=== PATIENT | female | born 1970 | race Caucasian/White ===

== ENCOUNTER 2016-07-29 20:15 | Emergency (ER) | payer MEDICAID ==
--- NOTE | ~2016-07-29 | ER ---
PATIENT'S NAME: ADOLPH SOMERS [facility] AGE: 45 Y [address] ROOM: [place] [address] LOCATION: [facility] ADMIT DATE: 07/29/2016 ER/Outpatient Report DISCHARGE DATE: 07/29/2016 FAMILY PHYSICIAN: Antonina Palmer ATTENDING PHYSICIAN: Flavio Jose Admission date and time are documented on the medical record. I saw the patient at 2025 hours. CHIEF COMPLAINT: Left anterior chest pain, radiating to her left upper arm, to her shoulder, down her left upper arm to the mid-biceps area. HISTORY OF PRESENT ILLNESS: This patient is a 45-year-old female who has had some left anterior chest pain radiating to her left shoulder down her left arm off and on for 3 weeks. She has some shortness of breath and cough. Cough is nonproductive. No fever, chills, sweats, or rigors. Upper respiratory cold. No headache, eyes, ears, nose, throat, neck, or spine pain. No lightheadedness, dizziness, syncope, or near syncope. No abdominal pain, nausea, vomiting, diarrhea, or urinary frequency, urgency, or dysuria. No joint or muscle swelling, redness, or pain. No skin eruptions or rash. Does have depression and anxiety. No neuro changes. No endocrine problems. HOME MEDICATIONS: See attached medication list. ALLERGIES: PENICILLIN. SOCIAL HISTORY: The patient smokes 1-1/2 to 1 pack of cigarettes per day. Rare intake of alcohol. SIGNIFICANT PAST MEDICAL HISTORY: Anxiety, depression, tobacco abuse, hypertension, dyslipidemia, and pseudotumor cerebri. OPERATIONS: D and C x2, x2, and cholecystectomy. REVIEW OF SYSTEMS: All systems reviewed by me are negative with the exception of those discussed in the history of present illness. PATIENT'S NAME: ADOLPH SOMERS [facility] AGE: 45 Y [address] ROOM: [place] [address] LOCATION: [facility] ADMIT DATE: 07/29/2016 ER/Outpatient Report DISCHARGE DATE: 07/29/2016 FAMILY PHYSICIAN: Antonina Palmer ATTENDING PHYSICIAN: Flavio Jose PHYSICAL EXAMINATION: VITAL SIGNS: Temperature 97.7, tympanic, pulse 81, respirations 16, blood pressure 132/64, and O2 sat on room air is 100%. [place] Coma Scale was 15. HEAD: Normocephalic. EYES: Clear. EARS: Clear TMs bilaterally. NOSE AND THROAT: Clear. Mucous membranes moist. Teeth, jaw intact. NECK: No nuchal rigidity. No thyromegaly or cervical adenopathy. No tenderness. SPINE: Negative. LUNGS: Clear. Good airflow. No rales, rhonchi, or wheezes. HEART: Regular. Pulses are palpable. Chest wall pain to palpation over the left anterior chest wall reproduces pain. ABDOMEN: Soft, nondistended, nontender. Good bowel tones. No organomegaly or abnormal mass palpable. EXTREMITIES: Without peripheral edema, cyanosis, or deformity. NEUROVASCULAR: Intact. SKIN: Clear. LABORATORY DATA: EKG showed sinus rhythm. No acute ST-elevation, ischemic change, or arrhythmia. IMPRESSION: Left anterior chest wall pain, costochondritis with possible pleurisy. PLAN: The patient dismissed home. Observation. Activity as tolerated. Continue present home medications and care. Fluids, diet as tolerated. Medrol Dosepak take as directed. Phenergan Expectorant with Codeine, cough medication as needed for cough, heating pad to sore area of the left anterior chest intermittently as needed. Follow up with personal physician as needed. Discussion ensued with the patient concerning my findings and recommendations, she understands. MD NADIA REESE/modl /[id number] d: 07/30/16 0115 t: 07/30/16 1812, OUTPATIENT REPORT
[~2016-07-29 20:15] MED LIST: ALEVE220 M1 PO; DITROPAN XL5 MG PO; PRINIVIL (ZESTR20 MG PO; TRAZODONE PO; ZOCOR20 MG PO
== END 2016-07-29 20:58 | disposition disaster alternative care site (69) ==
LOC: GMED 20:15
DX: M94.0 Chondrocostal junction syndrome [Tietze] (principal); F17.210 Nicotine dependence, cigarettes, uncomplicated; F32.9 Major depressive disorder, single episode, unspecified; F31.9 Bipolar disorder, unspecified; E78.5 Hyperlipidemia, unspecified; I10 Essential (primary) hypertension; Z88.0 Allergy status to penicillin; Z90.49 Acquired absence of other specified parts of digestive tract; Z98.890 Other specified postprocedural states

== ENCOUNTER 2016-07-31 20:09 | Emergency (ER) | payer MEDICAID ==
--- NOTE | ~2016-07-31 | ER ---
PATIENT'S NAME: ADOLPH SOMERS [facility] AGE: 45 Y [address] ROOM: [place] [address] LOCATION: ED ADMIT DATE: 07/31/2016 ER/Outpatient Report DISCHARGE DATE: 07/31/2016 FAMILY PHYSICIAN: Antonina Palmer ATTENDING PHYSICIAN: Flavio Jose CHIEF COMPLAINT: Right foot injury. TIME OF THE PATIENT ARRIVAL: 2008 hours. TIME OF THE PATIENT EVALUATION: 2109 hours. The patient was not seen in a timely manner due to busy ER. HISTORY OF PRESENT ILLNESS: This is a 45-year-old female who presents to the ER who states she dropped a jar on the top of her right foot around 7:30 this evening. The patient states that she is having pain across her entire foot. She was able to ambulate on it. She denies any other injury at this time. ALLERGIES: PENICILLIN. MEDICATIONS: Please see medication list nurse's notes. PAST MEDICAL HISTORY: Hypertension, anxiety, depression, she has had a , cholecystectomy, and tubal ligation. SOCIAL HISTORY: Denies any smoking, drug, or alcohol use. REVIEW OF SYSTEMS: CONSTITUTIONAL: Denies any change in weight or fatigue. MUSCULOSKELETAL: Complaining of right foot pain. HEME: No easy bruising or bleeding. SKIN: No lesions or rashes. PHYSICAL EXAMINATION: VITAL SIGNS: Height 5 feet stated, blood pressure is 128/71, weight 84 kg taken, pulse 74, respirations 16, temperature 98.7 degrees tympanically, and saturations 96% on room air. On[place] Coma Score is 15. GENERAL: Alert, calm, well-developed female, in no acute distress. PATIENT'S NAME: ADOLPH SOMERS [facility] AGE: 45 Y [address] ROOM: [place] [address] LOCATION: ED ADMIT DATE: 07/31/2016 ER/Outpatient Report DISCHARGE DATE: 07/31/2016 FAMILY PHYSICIAN: Antonina Palmer ATTENDING PHYSICIAN: Flavio Jose EXTREMITIES: No clubbing or cyanosis. She does have tenderness with palpation across distal aspect of all of her metatarsals. She has good capillary refill to all of her toes. She has a good pulse noted. She has no tenderness in her heel or tib-fib area. NEURO: Cranial nerves 2 through 12 grossly intact. Gait is steady without assistance. LABS AND X-RAYS: Labs none were done. X-rays of the right foot showed no obvious fracture. IMPRESSION: Right foot contusion. ASSESSMENT AND PLAN: I did give the patient reassurance. We did give her some ibuprofen here in the emergency room for her pain. We will dismiss her to home. She is to ice, elevate the foot, take Tylenol or ibuprofen as needed for pain control, and follow up with her primary care physician as needed. The patient understands and agrees with care. MILAD ANGUIANO PA-C FOR MD GEORGE REESE/modl /[id number] d: t: 08/08/16 1232, OUTPATIENT REPORT
== END 2016-07-31 22:45 | disposition disaster alternative care site (69) ==
LOC: GMED 20:09
DX: S90.31XA Contusion of right foot, initial encounter (principal); I10 Essential (primary) hypertension; F32.9 Major depressive disorder, single episode, unspecified; F41.9 Anxiety disorder, unspecified; Z90.49 Acquired absence of other specified parts of digestive tract; Z88.0 Allergy status to penicillin; Z98.51 Tubal ligation status; W20.8XXA Other cause of strike by thrown, projected or falling object, initial encounter

== ENCOUNTER 2016-08-08 19:15 | Emergency (ER) | payer MEDICAID ==
--- NOTE | ~2016-08-08 | ER ---
PATIENT'S NAME: ADOLPH SOMERS [facility] AGE: 45 Y [address] ROOM: [place] [id number] LOCATION: [facility] ADMIT DATE: 08/08/2016 ER/Outpatient Report DISCHARGE DATE: 08/08/2016 FAMILY PHYSICIAN: Antonina Palmer ATTENDING PHYSICIAN: Becka Lane Time of Arrival: 1815 hours. Time of Evaluation: 1935 hours. CHIEF COMPLAINT: Fever. HISTORY OF PRESENT ILLNESS: This is a 45-year-old female, who presents to the ER, who states she started running a fever on Friday. The patient states she has not been eating or drinking very well and feels like she may be dehydrated. The patient states that she has had vomiting, no diarrhea. She has had a little bit of a cough, but it has not been bad, and that is not new for her. She has not taken anything lately for her fever, but she did take some Aleve around 1600 hours today. The patient states that no one else at home is ill at this time. ALLERGIES: PENICILLIN. MEDICATIONS: Please see medication list nurse's notes. PAST MEDICAL HISTORY: Pseudotumor cerebri. PAST SURGERIES: x2, tubal ligation, and cholecystectomy. SOCIAL HISTORY: Smokes half pack a day. She does have a drug history. She smoked methamphetamines 20 years ago. REVIEW OF SYSTEMS: A 10-point review of systems was completed and was negative with the exception of those discussed in the HPI. PHYSICAL EXAMINATION: VITAL SIGNS: Height 5 feet and 1 inch stated, weight 82.4 kg taken, blood pressure is 106/59, pulse 114, respirations 18, temperature 101 degrees tympanically, and saturations 95% on room air. Oniel Coma Score is 15. PATIENT'S NAME: ADOLPH SOMERS [facility] AGE: 45 Y [address] ROOM: [place] [address] LOCATION: ED ADMIT DATE: 08/08/2016 ER/Outpatient Report DISCHARGE DATE: 08/08/2016 FAMILY PHYSICIAN: Antonina Palmer ATTENDING PHYSICIAN: Becka Lane GENERAL: Alert, calm, well developed female, in no acute distress, but she does appear that she does not feel well. HEENT: Head: Normocephalic. Eyes: Pupils are equal and reactive to light. Ears: TMs display good light reflexes bilaterally. Auditory canals are clear. Nose: Turbinates pink with no drainage. Throat: Slightly erythematic. No exudates were seen. She does have tacky mucous membranes. LUNGS: Clear to auscultation bilaterally. No wheezes or crackles. Normal respiratory effort. HEART: Tachycardic. Normal rhythm. No lifts, thrills, or murmurs. ABDOMEN: Soft. It is nontender. She has good bowel sounds throughout. No masses are palpated. EXTREMITIES: No clubbing, cyanosis, or edema. Full range of motion of all limbs. SKIN: Warm, dry, and intact. LABORATORY DATA: CBC: White count is 9.7, hemoglobin is 12.5, platelets are 171, and ANC is 7.5. CMS: Potassium is 3.4, sodium is 138, glucose is 124, calcium 8.4, BUN 28, and creatinine 1.5. Influenza A and B were both negative. Strep test was negative. IMPRESSION: Febrile illness. ASSESSMENT AND PLAN: We did give the patient a total of 2 L of IV fluids here in the emergency room along with Zofran 4 mg IV. We did give her 800 mg of ibuprofen for her fever as well. The patient states she is feeling much better prior to dismissal. We will dismiss her to home with a prescription for Zofran to use as directed. She needs to do small amounts of fluids frequently, continue to monitor her symptoms, Tylenol or ibuprofen as needed for fever, and follow up with her primary care physician if she worsens. The patient understands and agrees with care. MILAD ANGUIANO PA-C FOR MD GEORGE LEBLANC/wayne /[id number] d: 08/09/16 0157 t: 08/09/16 1818, OUTPATIENT REPORT
[2016-08-08 20:12] LABS: BASOPHIL % 0.2 %; EOSINOPHIL # 0.1 K/uL (0.0-0.5); EOSINOPHIL % 0.6 %; HEMATOCRIT 37.8 % (33.0-46.0); HEMOGLOBIN 12.5 g/dL (10.0-15.0); IMMATURE GRANULOCYTE # 0.1 K/uL (0.0-0.3); IMMATURE GRANULOCYTE % 0.5 %; LYMPHOCYTE # 1.2 K/uL (0.8-4.0); LYMPHOCYTE % 12.7 %; MCHC 33.1 gm/dL (32.0-36.5); MCV 90.9 fl (83.0-98.0); MONOCYTE # 0.8 K/uL (0.0-1.0); MONOCYTE % 8.1 %; MPV 10.1 fl (9.4-12.4); NEUTROPHIL # (ANC) 7.5 K/uL (1.8-7.8); NEUTROPHIL % 77.9 %; NRBC % 0 /100WBC (0-0.00); PLATELET COUNT 171 K/uL (150-450); RBC 4.16 M/uL (3.50-5.50); RDW-CV 14.5 % (11.9-14.6); WBC 9.7 K/uL (4.0-11.0)
[2016-08-08 20:28] LABS: ALBUMIN 2.8 gm/dL (3.5-5.0); ANION GAP 17.4 (10.0-19.0); CALCIUM 8.4 mg/dL (8.5-10.5); CREATININE 1.5 mg/dL (0.5-1.1); POTASSIUM 3.4 mMol/L (3.7-5.1); TOTAL BILIRUBIN 0.6 mg/dL (0.0-1.5); TOTAL PROTEIN 6.7 g/dL (6.0-8.4)
== END 2016-08-08 21:32 | disposition disaster alternative care site (69) ==
LOC: GMED 19:15
PROVIDERS: Emergency Medicine
DX: R50.9 Fever, unspecified (principal); F17.210 Nicotine dependence, cigarettes, uncomplicated; Z98.51 Tubal ligation status; Z90.49 Acquired absence of other specified parts of digestive tract; Z88.0 Allergy status to penicillin
CPT/HCPCS: J2405; J7030

== ENCOUNTER 2016-10-10 12:15 | Emergency (ER) | payer MEDICAID ==
--- NOTE | ~2016-10-10 | ER ---
PATIENT'S NAME: ADOLPH SOMERS [facility] AGE: 45 Y [address] ROOM: [place] [address] LOCATION: [facility] ADMIT DATE: 10/10/2016 ER/Outpatient Report DISCHARGE DATE: 10/10/2016 FAMILY PHYSICIAN: Antonina Palmer ATTENDING PHYSICIAN: Kita Marmolejo Time of arrival: 1230. Time of exam: 12:40. CHIEF COMPLAINT: Finger laceration. HISTORY OF PRESENT ILLNESS: The patient states approximately 30 minutes prior to arrival, she was using a knife to cut an onion and cut her left middle finger. Denies any other injury. ALLERGIES: ON THE CHART AND REVIEWED BY ME. MEDICATIONS: On the chart and reviewed by me. PAST MEDICAL HISTORY: Chronic kidney disease, hypertension, brain tumor, and elevated cholesterol. PAST SURGICAL HISTORY: x2. D and C, gallbladder. SOCIAL HISTORY: She smokes half pack per day. Denies use of drugs or alcohol. Tetanus shot was approximately 3 years ago. She presented to the ER tonight with her [id number]. REVIEW OF SYSTEMS: All negative other than those mentioned in the HPI. PHYSICAL EXAMINATION: VITAL SIGNS: She weighed 80 kg, blood pressure is 116/89, pulse of 91, respirations 20, temperature of 98, and O2 saturations 96% on room air. GENERAL: She is awake, alert, and oriented x4. SKIN: [place], warm, and dry. RESPIRATIONS: Even and nonlabored. LUNGS: Sounds are clear throughout. HEART: Regular rate and rhythm. PATIENT'S NAME: ADOLPH SOMERS [facility] AGE: 45 Y [address] ROOM: [place] [address] LOCATION: [facility] ADMIT DATE: 10/10/2016 ER/Outpatient Report DISCHARGE DATE: 10/10/2016 FAMILY PHYSICIAN: Antonina Palmer ATTENDING PHYSICIAN: Kita Marmolejo EXTREMITIES: The patient has a lacerated left middle finger on the pad of the finger on the palmar side. It is approximately 1.5 cm long and U-shaped. She has strong radial and ulnar pulses. Good sensation to the tip of her fingers. EMERGENCY ROOM COURSE: The finger was anesthetized with 1% plain Xylocaine. Cleansed well with saline and Betadine and then closed with 4-0 Ethilon x3 stitches. The patient tolerated the procedure well. Sensation to finger continues. IMPRESSION: Laceration with simple closure. PLAN: Home, rest. Keep the wound clean and dry. Follow up with the primary provider in 2 to 3 days if showing signs of infection, otherwise in 7 to 10 days to have the stitches removed. The patient verbalized understanding. KAREEM LOVING APRN FOR MD LUIS PHAN/wayne /[id number] d: 10/11/16 0027 t: 10/15/16 1310, OUTPATIENT REPORT
== END 2016-10-10 13:00 | disposition disaster alternative care site (69) ==
LOC: GACC 12:15
PROC: 0HQGXZZ Repair Left Hand Skin, External Approach (ICD-10-PCS; principal; 2016-10-10)
DX: S61.213A Laceration without foreign body of left middle finger without damage to nail, initial encounter (principal); F17.210 Nicotine dependence, cigarettes, uncomplicated; I12.9 Hypertensive chronic kidney disease with stage 1 through stage 4 chronic kidney disease, or unspecified chronic kidney disease; N18.9 Chronic kidney disease, unspecified; E78.00 Pure hypercholesterolemia, unspecified; Z98.890 Other specified postprocedural states; W26.0XXA Contact with knife, initial encounter; Y93.89 Activity, other specified

== ENCOUNTER 2016-12-03 14:39 | Emergency (ER) | payer MEDICAID ==
--- NOTE | ~2016-12-03 | ER ---
PATIENT'S NAME: ADOLPH SOMERS [facility] AGE: 46 Y [address] ROOM: [place], [place] [address] LOCATION: ED ADMIT DATE: 12/03/2016 ER/Outpatient Report DISCHARGE DATE: 12/03/2016 FAMILY PHYSICIAN: Antonina Palmer ATTENDING PHYSICIAN: Gerry Dawson TIME SEEN: 1445 hours. CHIEF COMPLAINT: Left-sided chest pain. HISTORY OF PRESENT ILLNESS: The patient 46-year-old female who presents with left-sided chest pain, started about two days ago. She denies any fevers, no shortness of breath. MEDICAL HISTORY: Includes hypertension, has a previous history of treatment for bronchitis. SURGERIES: Include , tubal ligation, and cholecystectomy. SOCIAL HISTORY: Smoker, half pack a day. Alcohol, occasionally. REVIEW OF SYSTEMS: GENERAL: No recent fever or chills. HEAD AND EENT: Denies any nasal congestion or sore throat. RESPIRATORY: Has had a slight cough. She does complain of some left-sided chest pain, somewhat intermittent. She has had no hemoptysis or fevers. CARDIOVASCULAR: Denies any history of hypertension or coronary artery disease. GASTROINTESTINAL: No nausea, vomiting, or weight loss. OBJECTIVE: VITAL SIGNS: Her blood pressure is 111/77, her temperature is 98.7, her respiratory rate 16, pulse 85, O2 saturations 96%. GENERAL APPEARANCE: Alert. No obvious distress. EYES: PERRLA. No icterus. NOSE: Airways patent. MOUTH: Oral membranes moist. Teeth in good repair. NECK: Supple. No adenopathy. LUNGS: Somewhat diminished, but clear. HEART: No murmurs, thrills, or gallop noted. ABDOMEN: Soft, nontender. PATIENT'S NAME: ADOLPH SOMERS [facility] AGE: 46 Y [address] ROOM: [place], [place] [address] LOCATION: ED ADMIT DATE: 12/03/2016 ER/Outpatient Report DISCHARGE DATE: 12/03/2016 FAMILY PHYSICIAN: Antonina Palmer ATTENDING PHYSICIAN: Gerry Dawson EXTREMITIES: No peripheral edema. No calf tenderness. DIAGNOSTIC DATA: Chest x-ray, heart size appeared normal. Lungs appeared clear. CT PE protocol. No pulmonary emboli were visualized. There was some abnormal appearance of her right kidney, possible pyelo; otherwise, lab work CBC: White count 7.4, hemoglobin 12.3, PTT was 25, pro- time 9.6, INR was 0.92. Her D-dimer was elevated at 0.74. Urine showed the presence of blood, has 10-20 white cells. Bacteria were present. Culture was pending. ASSESSMENT: 1. Left-sided chest pain. 2. Possible pyelonephritis. PLAN/TREATMENT: She was put on Keflex 500 q.i.d. Recommend she follow up with her family doctor in 48 hours. The patient verbalized understanding of her findings and recommendations and agreed. BOONE BLOCK FOR MD BENITEZ LONDONO/wayne /[id number] d: 12/23/16 1721 t: 12/30/16 1216, OUTPATIENT REPORT
[2016-12-03 15:22] LABS: BASOPHIL # 0.1 K/uL (0.0-0.2); BASOPHIL % 0.7 %; EOSINOPHIL # 0.1 K/uL (0.0-0.5); EOSINOPHIL % 1.6 %; HEMATOCRIT 37.2 % (33.0-46.0); HEMOGLOBIN 12.3 g/dL (10.0-15.0); IMMATURE GRANULOCYTE % 0.4 %; LYMPHOCYTE # 2.2 K/uL (0.8-4.0); MCH 31.4 pg (27.0-34.0); MCHC 33.1 gm/dL (32.0-36.5); MCV 94.9 fl (83.0-98.0); MONOCYTE # 0.4 K/uL (0.0-1.0); MONOCYTE % 4.7 %; MPV 10.3 fl (9.4-12.4); NEUTROPHIL # (ANC) 4.7 K/uL (1.8-7.8); NEUTROPHIL % 63.6 %; NRBC % 0 /100WBC (0-0.00); RBC 3.92 M/uL (3.50-5.50); RDW-CV 14.5 % (11.9-14.6); WBC 7.4 K/uL (4.0-11.0)
[2016-12-03 15:23] LABS: PLATELET COUNT 221 K/uL (150-450)
[2016-12-03 15:36] LABS: INR - (THERAPEUTIC) 0.92 (0.92-1.07); PROTIME 9.6 SECONDS (9.8-11.4); PTT 25 SECONDS (25-32)
[2016-12-03 15:42] LABS: ALBUMIN 3.2 gm/dL (3.5-5.0); ALK PHOS 71 IU/L (33-138); ALT 20 IU/L (12-78); ANION GAP 10.9 (10.0-19.0); AST 15 IU/L (10-40); BLOOD UREA NITROGEN 9 mg/dL (6-24); CALCIUM 8.2 mg/dL (8.5-10.5); CHLORIDE 111 mMol/L (96-110); CO2 23 mMol/L (22-32); CPK 30 IU/L (21-215); CREATININE 1.1 mg/dL (0.5-1.1); MAGNESIUM 2.1 mg/dL (1.8-2.6); POTASSIUM 3.9 mMol/L (3.7-5.1); SODIUM 141 mMol/L (135-145); TOTAL PROTEIN 6.5 g/dL (6.0-8.4)
[2016-12-03 15:46] LABS: TOTAL BILIRUBIN 0.3 mg/dL (0.0-1.5)
[2016-12-03 16:50] LABS: BILIRUBIN URINE NEGATIVE (NEGATIVE); BLOOD URINE 150 /UL (NEGATIVE); COLOR URINE YELLOW (YELLOW); GLUCOSE URINE NEGATIVE (NEGATIVE); KETONE URINE NEGATIVE (NEGATIVE); LEUKOCYTES URINE 100 /UL (NEGATIVE); NITRITE URINE NEGATIVE (NEGATIVE); PROTEIN URINE NEGATIVE (NEGATIVE); TURBIDITY URINE CLEAR (CLEAR); UROBILINOGEN URINE 4 mg/dL (NORMAL)
[2016-12-03 17:09] LABS: BACTERIA URINE MANY (NEGATIVE)
[2016-12-03 17:10] LABS: MUCUS URINE 1+ (NEGATIVE)
== END 2016-12-03 17:34 | disposition disaster alternative care site (69) ==
LOC: GMED 14:39
PROVIDERS: Physician Assistant Medical
DX: R07.9 Chest pain, unspecified (principal); I10 Essential (primary) hypertension; F17.210 Nicotine dependence, cigarettes, uncomplicated; Z98.51 Tubal ligation status; Z98.890 Other specified postprocedural states; Z90.49 Acquired absence of other specified parts of digestive tract; Z88.0 Allergy status to penicillin; Z79.899 Other long term (current) drug therapy
CPT/HCPCS: J2405; Q9967